=== PATIENT | female | born 1950 | race Hispanic/Latino ===

== ENCOUNTER 2017-03-23 08:00 | Day surgery (SDC) | payer MEDICARE ==
[2017-03-20 14:07] VITALS: BMI 27.9
[2017-03-23] MEDS ORDERED: Lactated Ringer's 1,000 ML IV SCH (09:39)
[2017-03-23] MEDS ORDERED: Propofol 10 mg/ml Inj (20 ML) ONE ×2 (09:41→10:26)
[2017-03-23] MEDS ORDERED: Lidocaine 1% Inj (20ml) ONE (10:26)
[2017-03-23 10:49] VITALS: RESP 16
[2017-03-23 11:39] VITALS: BP 132/87; PULSE 64; TEMP 98; O2SAT 99
== END 2017-03-23 11:59 | disposition home or self-care (01) ==
LOC: ENDO 08:00
PROVIDERS: ATTEND Internal Medicine Gastroenterology
DX: K21.0 Gastro-esophageal reflux disease with esophagitis (principal); K25.9 Gastric ulcer, unspecified as acute or chronic, without hemorrhage or perforation; K29.50 Unspecified chronic gastritis without bleeding; K44.9 Diaphragmatic hernia without obstruction or gangrene; K22.2 Esophageal obstruction; K29.80 Duodenitis without bleeding; Z12.11 Encounter for screening for malignant neoplasm of colon; K57.30 Diverticulosis of large intestine without perforation or abscess without bleeding; K64.8 Other hemorrhoids; K64.4 Residual hemorrhoidal skin tags; I10 Essential (primary) hypertension; E78.5 Hyperlipidemia, unspecified; E11.9 Type 2 diabetes mellitus without complications
CPT/HCPCS: 43239; 45378; 88305; 88342; J2704; J3010; J7040; J7120

== ENCOUNTER 2017-09-18 07:11 | Day surgery (SDC) | payer MEDICARE ==
[2017-09-03 08:15] VITALS: BMI 26.2
[2017-09-18] MEDS ORDERED: Sodium Chloride 0.9% 1,000 ML IV SCH (09:00)
[2017-09-18] MEDS ORDERED: Propofol 10 mg/ml Inj (20 ML) ONE (09:32)
[2017-09-18] MEDS ORDERED: Midazolam 2 MG/2 ML VIAL ONE (09:38)
[2017-09-18 10:41] VITALS: BP 123/80; PULSE 70; RESP 18; TEMP 98; O2SAT 95
== END 2017-09-18 11:17 | disposition home or self-care (01) ==
LOC: ENDO 07:11
PROVIDERS: ATTEND Internal Medicine Gastroenterology
DX: K31.7 Polyp of stomach and duodenum (principal); K44.9 Diaphragmatic hernia without obstruction or gangrene; K29.50 Unspecified chronic gastritis without bleeding; Z87.11 Personal history of peptic ulcer disease
CPT/HCPCS: 43239; 88305; 88342; J2001; J2250; J2704; J7040 ×2